=== PATIENT | male | born 1940 | race Caucasian/White ===

== ENCOUNTER 2016-11-11 00:16 | Day surgery (SDC) | payer MEDICARE ==
[~2016-11-11] VITALS: Ht 182.9 cm; Wt 77.2 kg
[2016-11-11] VITALS (14 sets, daily range): BP systolic 104–122; BP diastolic 53–67; PULSE 59–64; RESP 12–20; O2SAT 89–100
[~2016-11-11 00:16] MED LIST: ASCO100089 PO; ASPI-973 PO; CARV6.25 PO; FLUO20CA25 PO; GLUC1TAB20 PO; LIP40 PO; LISI10TA PO; SPIR25TA PO; THIA100T64 PO
[2016-11-11] MEDS ORDERED: Heparin 10,000 Unit/1,000 mL NS Premix IV ONE (08:30)
[2016-11-11 08:57] LABS: BASOPHILS % (AUTO) 0.3 % (0-3); EOSINOPHILS % (AUTO) 1.5 % (0-5); MONOCYTES % (AUTO) 11.4 % (4-12); Mean Corpuscular Hemoglobin 31.8 pg (27.0-35.0); Mean Corpuscular Volume 91.9 fL (81-100); NEUTROPHILS % (AUTO) 60.6 % (40-74); Platelet Count 173 bil/L (150-400)
[2016-11-11] MEDS ORDERED: Heparin 1,000 Units/500 mL NS Premix IV ONE (09:41)
[2016-11-11] MEDS ORDERED: Atropine 1 mg/10 mL (Code) Syringe ONE ×2 (09:42→11:44)
--- NOTE | 2016-11-11 09:51 | NUR ---
Admitted through [facility] as an outpatient for a heart cath by Dr Palomo for ongoing exertional chest pressure. Admits in a NSB-NSR with no ectopy - HX of a [place] in 2012. Patient is pain free at rest, but with exertion on a treadmill, or walking patient has chest pressure that gradually resolves when activity stops. Pt is here today with his Cindy.
--- NOTE | 2016-11-11 09:59 | HP ---
[address] [address] HISTORY AND PHYSICAL PATIENT: DIAMANTE MONTANO : 1940 MR#: [id number] ADMIT: 11/11/2016 JOB ID: [id number] DATE OF SERVICE: 11/11/2016 CHIEF COMPLAINT: Chest discomfort. HISTORY: The patient is a 76-year-old male with history of hypertension, hypercholesterolemia and prior smoker. The patient has documented coronary artery disease dating back to 2012. He was found to have ischemic cardiomyopathy with ejection fraction of 40%. He underwent drug-eluting stent placement to the mid left anterior descending on October 03, 2012. The patient was in his usual state of health until the past 2-3 weeks when he experienced exertional chest discomfort. He described as a chest congestion and hurting. He rated it about 6-7/10. It was associated with nausea and lightheadedness. It is relieved by rest after 2-3 minutes. It happens whenever he exerts himself like walk up hills, carry groceries upstairs, mowing the lawn or walks on the treadmill. It does not happen at rest or wake him up at night. PAST MEDICAL HISTORY: 1. Cardiac history as outlined above. 2. Hypertension. 3. Hypercholesterolemia. PAST SURGICAL HISTORY: 1. Prostate removal in 2006. 2. Left knee surgery in 2004. 3. Tonsillectomy. CURRENT MEDICATIONS: 1. Aspirin 81 mg daily. 2. Aldactone 12.5 mg daily. 3. Lisinopril 5 mg daily. 4. Fluoxetine 20 mg daily. 5. Simvastatin 20 mg daily. 6. Vitamin C 500 mg 2 tablets daily. 7. Chondroitin 1200 mg 2 tablets daily. 8. Glucosamine 1500 mg 2 tablets daily. 9. Carvedilol 6.25 mg twice daily. 10. Vitamin B complex. ALLERGIES: No known allergies. SOCIAL HISTORY: The patient lives with his in [place]. He used to smoke one pack per day for 17 years. He quit smoking 40 years ago. He drinks a glass of wine every day. FAMILY HISTORY: His father when the patient was 11 years old. REVIEW OF SYSTEMS: A 10 system review and pertinent for cataract surgery in both eyes in August of 2015. He denies orthopnea, PND, palpitation or syncope. PHYSICAL EXAMINATION: Reveals an elderly male appearing in no acute distress. Temperature is 36.4. Blood pressure is 105/60. Pulse 58. Skin is warm and dry. Head and face have normal configuration. Arcus senilis. Neck: Supple. No jugular venous distention or carotid bruits. Chest: Normal expansion. Lungs are clear to auscultation. Heart: The first heart sound is diminished. Second heart sound is normal. Grade 1/6 holosystolic murmur at the apex. Abdomen: Soft, nontender and without hepatosplenomegaly. Back: No CVA tenderness. Extremities: No clubbing, cyanosis or edema. Neurologic: Grossly intact. BLOOD TESTS: From November 05, 2016 show hemoglobin 13.9, WBC 5.6, platelet 147, BUN 18, creatinine 1.1, glucose 87, cholesterol 132, triglyceride 72, HDL 58, LDL 60. IMPRESSION: 1. Angina pectoris. 2. Status post left anterior descending stent in 2012. 3. History of hypertension. 4. Hypercholesterolemia. 5. History of smoking. PLAN: The patient received appropriate medication treatment for coronary artery disease with aspirin, beta agus, ANICETO inhibitor and statin. His cholesterol is well controlled. The patient will undergo coronary angiogram and possible percutaneous intervention. The risks and benefits of the procedure have been explained to the patient. He understands and agrees to proceed with the procedure. ETIENNE
[2016-11-11] MEDS ORDERED: 0.9% Sodium Chloride 250 ML ONE (10:16)
[2016-11-11] MEDS ORDERED: Adenosine Inj 20 ML IV ONE ×2 (10:16)
[2016-11-11] MEDS ORDERED: 0.9% Sodium Chloride 100 ML ONE (10:18)
[2016-11-11] MEDS ORDERED: Heparin 1,000 Unit/mL 10 mL Inj ONE ×2 (10:31→11:43)
[2016-11-11] MEDS ORDERED: fentaNYL-PF 50 mCg/mL 2 mL Inj ONE (10:32)
[2016-11-11] MEDS ORDERED: Nitroglycerin 50,000 mcg/250 mL D5W Premix IV ONE (11:44)
--- NOTE | 2016-11-11 12:38 | NUR ---
Returned to [facility] with a single stent to his LAD with perclose sealing artery. NSR rates in the 60's - no pain at puncture site. Plan is to D/C home after [address] Palomo has spoken to his , "Monse" about the results of today's procedure.
--- NOTE | 2016-11-11 13:02 | NUR ---
SPO2 SPO2 dropped to 87-89% when sleeping. O2 placed at 2L with SPO2 97-99%
--- NOTE | 2016-11-11 13:19 | DI95 ---
[place] [address] INTERVENTIONAL CARDIAC CATHETERIZATION PATIENT: DIAMANTE MONTANO : 1940 MR#: [id number] ADMIT: 11/11/2016 JOB ID: [id number] DATE OF PROCEDURE: 11/11/2016 PATIENT PROFILE: This patient is a 76-year-old male with history of hypertension, hypercholesterolemia, and prior smoking. He had coronary stent to the mid left anterior descending artery in 2012. The patient presented with recurrent angina pectoris for the past 2-3 weeks. PROCEDURE: 1. Retrograde left heart catheterization. 2. Selective coronary angiography. 3. Balloon angioplasty and stenting to the mid left anterior descending. 4. Left ventricular angiogram. 5. Vascular closure device, Perclose. COMPLICATIONS: None. METHOD: Retrograde left heart catheterization was performed from the right groin under 1% lidocaine local anesthesia using a 6-English sheath. Selective coronary angiogram was performed in multiple projections, including cranial and caudal angulations with hand injected contrast via JL5 and 3DRC catheters. Heparin 100 units/kg and Plavix 300 mg were given. A 6-English JL5 guide was advanced to left coronary ostium. A Runthrough wire was placed inside the left anterior descending artery. The lesion was pre-dilated with a 2.5 x 12 mm balloon. A Xience 3.0 x 15 mm stent was placed inside the lesion and deployed at 14 atmospheres for 20 seconds. Final angiogram was obtained. A 6-English angulated pigtail catheter was advanced to the left ventricle and left ventricular angiogram was performed in the 30 degree RIVERO view by injecting contrast at the rate of 12 cc/second for 3 seconds. This catheter was withdrawn. Right femoral angiogram was performed. Following sheath removal, hemostasis was achieved by using a Perclose device. The patient tolerated the procedure well. He was transferred to [facility] in good condition. TOTAL CONTRAST USED: 105 cc FLUOROSCOPY TIME: 3 minutes. TOTAL RADIATION DOSE: 270 mGy. RESULTS: 1. Selective coronary angiogram: A. Left main coronary artery is normal. B. The left anterior descending artery is transapical and has critical 98% stenosis in the mid portion between the first and second diagonal branch. The previous stent site in the mid left anterior descending artery distal to the takeoff of the second diagonal branch remained widely patent. The first and second diagonal branches have minor disease. C. The dominant circumflex artery is chronically occluded distal to the takeoff of the second obtuse marginal branch. There is well-developed bridging collaterals to the distal circumflex artery. D. The nondominant right coronary artery has 30% to 40% stenosis in the mid portion. 2. Balloon angioplasty and stenting was performed to the tight culprit mid left anterior descending artery lesion by deploying one drug eluting stent (3.0 x 15 mm) to achieve an excellent angiographic result with YESENIA-3 flow distally. 3. Left ventricular angiogram demonstrates moderately depressed left ventricular systolic function (visually estimated ejection fraction 30% to 35%). The anterolateral wall is mildly hypokinetic. The inferior wall is severely hypokinetic. 4. There is no gradient across the aortic valve on catheter withdrawal. 5. Aortic pressure is 128/52 mmHg. Left ventricular pressure is 129/2 mmHg. 6. Left ventricular end-diastolic pressure is 12 mmHg. CONCLUSION: 1. 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 2. Critical 98% stenosis of the mid left anterior descending and this was successfully treated with one drug-eluting stent. 3. Left ventricular ejection fraction 30% to 35%. 4. LVEDP is 12 mmHg. MTDD
[2016-11-11] MEDS ORDERED: ATOR20TA PO (13:54)
--- NOTE | 2016-11-11 16:45 | NUR ---
Heart cath recovery completed at 1615 - 2 hours additional fluid to be given prior to same day PCI discharge from [facility]. Reviewed home care instructions with patient and patient's ,"Cindy". Heart cath access of the Right femoral artery is soft and non-tender. Pt has ambulated to bathroom and is sitting at 45 degrees in bed. No chest pressure or dizziness with ambulation. Room air Sao2 is 96%.
--- NOTE | 2016-11-11 19:04 | NUR ---
MELANIE Care of patient assumed at 1715. Report from Saima HOWARD. No bleeding or hematoma at right groin perclose. Patient denies pain. Prior to discharge patient ambulatory, taking PO and void. Patient and affirm they understand instructions and have no further questions. Home with at 1830.
== END 2016-11-11 23:59 | disposition home or self-care (01) ==
LOC: SOUO 00:16
PROVIDERS: ATTEND Internal Medicine Interventional Cardiology
DX: I25.119 Atherosclerotic heart disease of native coronary artery with unspecified angina pectoris (principal); I25.82 Chronic total occlusion of coronary artery; I10 Essential (primary) hypertension; E78.00 Pure hypercholesterolemia, unspecified; Z79.82 Long term (current) use of aspirin; Z87.891 Personal history of nicotine dependence; Z95.5 Presence of coronary angioplasty implant and graft
CPT/HCPCS: 36415; 85025; 85610; 93005; 93458; 99152; 99153; C1725; C1760; C1769; C1874; C1887; C9600; J0153; J0461; J1644; J2250; J3010; J7050; Q9967